=== PATIENT | female | born 1940 | race Two or more races ===

== ENCOUNTER 2018-11-26 10:55 | Inpatient (IN) | payer MEDICAID ==
[~2018-11-26] VITALS: Ht 152.4 cm; Wt 50.6 kg
[2018-11-26 11:42] LABS: Basophils # (auto) 0 uL; Eosinophils # (auto) 0 uL; Lymphocytes # (auto) 0.6 uL; Monocytes # (auto) 0.3 uL; White Blood Cell 2.5 10^3/uL (4.4-10.8)
[2018-11-26 11:43] LABS: Basophils % (auto) 0.3 % (0.0-2.0); Hematocrit 23.8 % (36.0-46.0); Hemoglobin 8.3 g/dL (12.2-16.2); Lymphocytes % (auto) 24.7 % (10.0-50.0); Mean Corpuscular Hemoglobin 29.2 pg (28.0-32.0); Mean Corpuscular Hgb Conc. 34.8 g/dL (32.0-36.0); Mean Corpuscular Volume 83.9 fL (80.0-100.0); Monocytes % (auto) 12.2 % (0.0-12.0); Neutrophils # (auto) 1.6 uL; Neutrophils % (auto) 62.8 % (37.0-80.0); Nucleated Red Blood Cells % 0.1 %; Platelet Count (auto) 195 10^3/uL (140-450); Red Blood Cells 2.84 10^6/uL (4.0-5.20); Red Cell Distribution Width 14.6 % (11.8-14.3)
[2018-11-26 11:59] LABS: Potassium 4.3 mmol/L (3.5-5.1)
[2018-11-26 12:11] LABS: Bilirubin, Total 0.3 mg/dL (0.2-1.0); Magnesium 1.3 mg/dL (1.6-2.6); Total Protein 6.7 g/dL (6.4-8.2)
[2018-11-26] MEDS ORDERED: DOCUSATE SOD 100 MG CAP PO PRN (13:30)
[2018-11-26] MEDS ORDERED: MORPHINE SULF INJ 2 MG/ML SYRINGE 1ML IV PRN ×2 (13:30)
[2018-11-26] MEDS ORDERED: ACETAMINOPHEN 500 MG TAB PO PRN (13:30)
[2018-11-26] MEDS ORDERED: HYDROcodone-ACET 5/325MG TAB PO PRN (13:30)
[2018-11-26] MEDS ORDERED: ONDANSETRON HCL 4 MG/2 ML VIAL IV PRN (13:30)
[2018-11-26] MEDS ORDERED: SODIUM CHLORIDE 0.9% 500 ML IV ONE (13:30)
[2018-11-26] MEDS ORDERED: NITROGLYCERIN 0.4 MG SL TAB SL PRN (13:30)
[2018-11-26] MEDS ORDERED: DEXTROSE (50%) 50ML SYRG IV PRN (13:45)
[2018-11-26] MEDS ORDERED: LACTULOSE 20Gm/30ML SOLN PO ONE (14:15)
[2018-11-26] MEDS: MAGNESIUM SULFATE 1GM/100ML 100 ML IV SCH ×2 (15:04→17:53)
[2018-11-26 15:44] LABS: BUN/Creatinine Ratio 28.8; Calcium 7.2 mg/dL (8.5-10.1); Potassium 4.2 mmol/L (3.5-5.1)
[2018-11-26 16:00] VITALS: BP 133/57
--- NOTE | 2018-11-26 16:00 | NUR ---
Admit to TEE ANICETOTRISTAN admitted to TEE via gurney on monitor car operator. Patient transferred to bed, connected to unit monitoring, and weighed by bedscale. Patient oriented to ROMERO MIMS RN primary RN, patient only speak Salvadorean, called her family for information
--- NOTE | 2018-11-26 16:31 | NUR ---
Called Naeem (son in law), , made aware that patient was transferred to TEE room 265.
[2018-11-26 16:35] LABS: % Iron Saturation 7.3 % (15-50)
[2018-11-26 16:38] LABS: Urine Bacteria NONE SEEN /hpf (None Seen); Urine Blood TRACE /uL (Negative); Urine Specific Gravity 1.006 (1.001-1.035); Urine WBC <1 /hpf (0 - 5)
[2018-11-26 16:39] LABS: Sodium Urine 79 mmol/L (40-220)
[2018-11-26 16:47] LABS: Creatinine, Urine 7 mg/dL (30.0-125.0)
--- NOTE | 2018-11-26 17:18 | NUR ---
Families at the bedside, daughter and her son in law, provided patient's information at this time. Malay communication broad provided. Her son in law helping with explanations.
--- NOTE | 2018-11-26 17:24 | NUR ---
Families at the bedside, helping with translation. Patient oriented to ROMERO MIMS RN primary RN, unit, room, bed, and unit policies regarding patient care and visiting hours. All questions and concerns addressed, patient verbalized understanding. Patient and her families made aware that will taking pictures on her skin, they agreed. Call light within reach, patient made aware how to use the call light. Assessment done, her families stated that patient fell on the floor on her knees on last Saturday. Multiple scabs on both knees. No complaining of pain or chest pain noted. Room air O2 saturation 98%, HR 95 with SR, BP 115/51 mmHg, will continue to monitor and care. Patient and her families made aware about the plan of care, will waiting for Nephrology come in for further treatment and care plan, they agreed with the plan.
[2018-11-26 17:30] VITALS: BP 133/57
[2018-11-26] MEDS: ACCU-CHEK COMFORT CURVE STRIP VI SCH ×2 (17:53→23:09)
[2018-11-26] MEDS: InsuLIN REG 1unit/0.01ml Soln (100units/ml) SC SCH ×2 (18:24→22:00)
--- NOTE | 2018-11-26 18:24 | NUR ---
Dr. Infante at the bedside, her families at the bedside for giving patient information, plan of care discussed with patient, received new orders, patient and her families made aware.
[2018-11-26] MEDS ORDERED: ALOG1TAB2 PO (18:44)
[2018-11-26] MEDS ORDERED: ASPI-404 PO (18:44)
[2018-11-26] MEDS ORDERED: SPIR100T4 PO (18:44)
[2018-11-26] MEDS ORDERED: FURO20TA3 PO (18:44)
[2018-11-26] MEDS ORDERED: [UNRECOGNIZED DRUG - CODE] PO (18:44)
[2018-11-26] MEDS ORDERED: AZIL40TA2 PO (18:44)
[2018-11-26] MEDS ORDERED: LEVO88TA4 PO (18:44)
[2018-11-26] MEDS ORDERED: METF-370 PO (18:44)
[2018-11-26] MEDS ORDERED: BENZ0.5T14 PO (18:44)
[2018-11-26] MEDS ORDERED: PRA25T GT (18:44)
[2018-11-26] MEDS: SODIUM CHLORIDE 0.9% 1,000 ML IV SCH (18:50)
--- NOTE | 2018-11-26 19:45 | NUR ---
Opening Shift Note Assumed care of patient, awake and alert, asked to go to the restroom for BM. Bed black provided, Pt turned by self on the bed well. Pt speaks Ukrainian only, Ukrainian speaking staff helping with translation. Pt's eyesight is not well, Pt unable to see the communication board provided. Breathing on RA, even and nonlabored, No S/S of distress/SOB or pain. 18G IV at left AC infusing NS at 100ml/hr, CDI site. Curiel's catheter hung to gravity with clear yellowish urine. Instructed on POC and to call for assist PRN, will continue to monitor for changes Q1hr and PRN.
[2018-11-26 19:59] LABS: Albumin 2.1 g/dL (3.4-5.0); BUN/Creatinine Ratio 23.5; Calcium 7.4 mg/dL (8.5-10.1); Potassium 3.9 mmol/L (3.5-5.1)
[2018-11-26 20:00] VITALS: BP 119/54
[2018-11-26 20:02] LABS: Bilirubin, Total 0.3 mg/dL (0.2-1.0); Total Protein 6.9 g/dL (6.4-8.2)
--- NOTE | 2018-11-26 20:05 | NUR ---
Elimination Pt passed a large amount of yellowish/ brown soft stool. Perirectal and perineum care done. Z-guard applied. Pt tolerated and turned on the bed by self well. Re-positioned for comfort. After re-position done, Pt asked to use a bed black again for BM. Bed black provided. Continue care.
--- NOTE | 2018-11-26 22:05 | NUR ---
Condition update/ pain/ Muscle twitching Pt resting well on bed. V/S and condition stable, c/o pain at both upper thighs, will administer pain medicine as order. Noted right shoulder twitching, right arm tremors, Pt stated that she has this before, unable to controlled, will endorsed to day shift. Continue care.
[2018-11-26 23:45] VITALS: BP 137/62
[2018-11-27] VITALS (31 sets, daily range): BP systolic 67–144; BP diastolic 31–61
--- NOTE | 2018-11-27 00:20 | NUR ---
Hypotension BP 70-80's / 30's after multiple measurements, RR 12/min, breathing even and nonlabored, lungs clear, awake and alert. BLE negative swollen. Last medication taken at bedtime was [place] 5/325 po. NS 100ml//hr for 500ml as MD order finished. Paged Hospitalist for low BP and management. Addendum: 11/27/18 at 0355 by Cmailla Palumbo RN 0115am Ari ROMO called back, Pt's condition notified. Ari ROMO ordered to give 5% Albumin 250ml IV once. Continue to monitor.
[2018-11-27] MEDS ORDERED: ALBUMIN 5% 250 ML IV ONE ×2 (01:20→02:00)
--- NOTE | 2018-11-27 03:30 | NUR ---
Condition update Pt sleeping well, condition stable. EKG showed SR, POX on RA breathing 95%. BP responded to fluid given. BP increased, see v/s sheet for details. Continue care.
[2018-11-27] MEDS: SODIUM CHLORIDE 0.9% 1,000 ML IV SCH ×3 (04:15→16:00)
--- NOTE | 2018-11-27 05:00 | NUR ---
Patient bathe/linen change Patient given partial bath with basin and water and no rinse spray. Skin integrity assessed for any changes, no new changes. Linens changed. Patient repositioned for comfort.
[2018-11-27 06:10] LABS: Basophils # (auto) 0 uL; Basophils % (auto) 0.2 % (0.0-2.0); Eosinophils # (auto) 0 uL; Hematocrit 24.7 % (36.0-46.0); Hemoglobin 8.5 g/dL (12.2-16.2); Lymphocytes # (auto) 1.2 uL; Lymphocytes % (auto) 22.4 % (10.0-50.0); Mean Corpuscular Hemoglobin 29.1 pg (28.0-32.0); Mean Corpuscular Hgb Conc. 34.6 g/dL (32.0-36.0); Mean Corpuscular Volume 84.1 fL (80.0-100.0); Monocytes # (auto) 0.4 uL; Monocytes % (auto) 7.6 % (0.0-12.0); Neutrophils # (auto) 3.6 uL; Neutrophils % (auto) 69.8 % (37.0-80.0); Nucleated Red Blood Cells % 0.1 %; Platelet Count (auto) 177 10^3/uL (140-450); Red Blood Cells 2.93 10^6/uL (4.0-5.20); Red Cell Distribution Width 14.4 % (11.8-14.3); White Blood Cell 5.2 10^3/uL (4.4-10.8)
[2018-11-27 06:42] LABS: Albumin 2.3 g/dL (3.4-5.0); Calcium 7.2 mg/dL (8.5-10.1); Potassium 3.9 mmol/L (3.5-5.1)
[2018-11-27 06:44] LABS: BUN/Creatinine Ratio 23.9
[2018-11-27 06:46] LABS: Bilirubin, Total 0.3 mg/dL (0.2-1.0); Total Protein 6.5 g/dL (6.4-8.2)
[2018-11-27] MEDS ORDERED: LEVOTHYROXINE SODIUM 88 MCG TAB PO SCH (07:00)
[2018-11-27] MEDS: InsuLIN REG 1unit/0.01ml Soln (100units/ml) SC SCH ×4 (07:00→22:00)
[2018-11-27] MEDS: ACCU-CHEK COMFORT CURVE STRIP VI SCH ×4 (07:01→22:16)
--- NOTE | 2018-11-27 07:30 | NUR ---
RECEIVED PATIENT SITTING UP IN THE BED, A/O TIMES 3 DANISH SPEAKING AND RESISTANCE WELDING MACHINE OPERATOR TRANSLATED FOR THE PATIENT, O2 BY DARIUS Reina TO GRAVITY, NS INFUSING INTO THE LAC 18G AT 10ML/HR TKO, NO COMPLAINTS OF PAIN OR SOB PAIN HAS A TREMOR TO THE RT ARM
--- NOTE | 2018-11-27 08:30 | NUR ---
SITTING UP IN THE BED BEING FEED HER BREAKFAST
--- NOTE | 2018-11-27 09:30 | NUR ---
FAMILY IN TO SEE THE PATIENT
--- NOTE | 2018-11-27 09:45 | NUR ---
DR WAYNE INTO SEE THE PATIENT AND SPOKE TO THE FAMILY
[2018-11-27] MEDS: FAMOTIDINE 20 MG TAB PO SCH (10:34)
[2018-11-27] MEDS: ASPirin-EC 81 mg tab PO SCH (10:34)
[2018-11-27] MEDS: LACTULOSE 20Gm/30ML SOLN PO SCH (10:35)
--- NOTE | 2018-11-27 10:35 | NUR ---
EXPLAIN MEDICATIONS TO THE PATIENT AND THE DAUGHTER AND FRIEND REGARDING THE DOSAGE, USAGE AND SIDE EFFECTS, STATED THEY UNDERSTOOD AND MEDS GIVEN ORDERED
--- NOTE | 2018-11-27 11:30 | NUR ---
SITTING UP IN BED, FAMILY AT THE BEDSIDE, NO COMPLAINTS OF PAIN
[2018-11-27] MEDS ORDERED: SODIUM FERR GLUC 62.5MG/5ML 125 MG in SODIUM CHL 0.9% 100 ML IV SCH (12:00)
[2018-11-27] MEDS: IRON SUCROSE COMPLEX 200 MG in SODIUM CHL 0.9% 100 ML IV SCH (12:06)
--- NOTE | 2018-11-27 12:34 | NUR ---
PATIENT BEING FEED HER LUNCH BY THE FAMILY
--- NOTE | 2018-11-27 13:30 | NUR ---
PATIENT TOLERATED, FEEDING AND FAMILY LEFT AND WENT TO EAT LUNCH
--- NOTE | 2018-11-27 14:13 | NUR ---
SITTING UP IN THE BED WITH EYES CLOSED
[2018-11-27 15:26] LABS: BUN/Creatinine Ratio 22.4; Calcium 7.1 mg/dL (8.5-10.1); Magnesium 1.9 mg/dL (1.6-2.6); Phosphorus 2.8 mg/dL (2.5-4.90); Potassium 3.7 mmol/L (3.5-5.1)
--- NOTE | 2018-11-27 15:30 | NUR ---
SITTING UP IN BED WATCHNG TV
--- NOTE | 2018-11-27 16:50 | NUR ---
FAMILY IN TO SEE THE PATIENT
[2018-11-27 16:59] LABS: Urine Bacteria FEW /hpf (None Seen); Urine Blood 1+ /uL (Negative); Urine Specific Gravity 1.013 (1.001-1.035); Urine WBC 28 /hpf (0 - 5)
[2018-11-27 17:06] LABS: Protein, Urine 205.5 mg/dL (0.0-11.9)
--- NOTE | 2018-11-27 17:28 | NUR ---
DR FARAH IN TO SEE THE PATIENT, AND TALK TO THE FAMILY REGARDING THE POC
[2018-11-27] MEDS: SODIUM BICARBONATE 650 MG TAB PO SCH ×2 (17:44→21:57)
--- NOTE | 2018-11-27 17:58 | NUR ---
SITTING UP IN BED, FAMILY AT THE BEDSIDE, [place] SPEAKING, BUT PER FAMILY IS A/O, O2 BY R/A, MCCOY TO GRAVITY, NS AT 60ML/HR INFUSING INTO THE LAC BY THE IV PUMP, WAITING TO EAT DINNER, 02 BY R/A
--- NOTE | 2018-11-27 18:19 | NUR ---
PATIENT BEING FEED HER DINNER BY THE FAMILY WILL CONTINUE TO MONITOR AND GIVE REPORT TO THE NEXT SHIFT
--- NOTE | 2018-11-27 19:41 | NUR ---
PATIENT GOING TO ROOM 234 NURSE RN REPORT GIVEN
--- NOTE | 2018-11-27 20:05 | NUR ---
Received patient from TEE via bed/ gurney in stable condition. Patient alert and oriented x 4, verbally coherent, however, understands Belarusian only. Patient's respiration even and unlabored, denies pain and discomfort at this time. Plan of care discussed, patient verbalized understanding. Will continue to monitor.
--- NOTE | 2018-11-27 20:10 | NUR ---
PATIENT TRANSFERRED PER BED TO ROOM 234 . PATIENT PLACED ON A TELEMETRY BOX.
[2018-11-28] MEDS: SODIUM CHLORIDE 0.9% 1,000 ML IV SCH ×2 (00:25→17:58)
[2018-11-28 05:00] VITALS: BP 140/66
[2018-11-28 05:53] LABS: BUN/Creatinine Ratio 21.8; Calcium 7.1 mg/dL (8.5-10.1); Potassium 4.1 mmol/L (3.5-5.1)
[2018-11-28] MEDS: SODIUM BICARBONATE 650 MG TAB PO SCH ×3 (06:25→22:55)
[2018-11-28] MEDS: LEVOTHYROXINE SODIUM 100 MCG TAB PO SCH (06:25)
[2018-11-28] MEDS: InsuLIN REG 1unit/0.01ml Soln (100units/ml) SC SCH ×4 (06:25→22:57)
[2018-11-28] MEDS: ACCU-CHEK COMFORT CURVE STRIP VI SCH ×4 (06:26→22:52)
[2018-11-28 09:00] VITALS: BP 107/49
[2018-11-28] MEDS: FAMOTIDINE 20 MG TAB PO SCH (10:49)
[2018-11-28] MEDS: LACTULOSE 20Gm/30ML SOLN PO SCH (10:49)
--- NOTE | 2018-11-28 10:50 | NUR ---
PASSED MORNING MEDICATIONS, PT TOLERATED WELL. PT ORIENTED TO SELF, . DAUGHTERS AT BEDSIDE. BED LOCKED AND IN LOWEST POSITION, BED ALARM ON. CALL LIGHT WITHIN REACH. WILL CONTINUE TO MONITOR.
[2018-11-28] MEDS: ASPirin-EC 81 mg tab PO SCH (10:54)
--- NOTE | 2018-11-28 11:00 | NUR ---
24 HOUR URINE SPECIMEN COLLECTION INITIATED PER ORDER. PT, FAMILY AND DR. FARAH AWARE OF PLAN.
[2018-11-28 13:00] VITALS: BP 116/51
[2018-11-28] MEDS: IRON SUCROSE COMPLEX 200 MG in SODIUM CHL 0.9% 100 ML IV SCH (13:16)
--- NOTE | 2018-11-28 13:17 | NUR ---
ANALISA RECEIVED FROM PHARMACY; ADMINISTERED NOW.
[2018-11-28 17:00] VITALS: BP 120/65
--- NOTE | 2018-11-28 18:43 | NUR ---
PT AWAKE, ALERT, ORIENTED TO PERSON, . ABLE TO HOLD CONVERSATION WITH DAUGHTERS AT BEDSIDE. PT FOLLOWS COMMANDS, DENIES ANY PAIN AT MOMENT. EFFORTLESS BREATHING ON ROOM AIR. 24HOUR URINE COLLECTION IN PROGRESS, TO END AND SEND SPECIMEN TOTAL TO LAB TOMORROW 11/29/18 AT 1100. BED LOCKED AND IN LOWEST POSITION, CALL LIGHT WITHIN REACH.
--- NOTE | 2018-11-28 20:09 | NUR ---
Opening Shift Note Assumed care of patient, awake and alert. No S/S of distress/SOB or pain. Instructed on POC and to call for assist PRN. Family at bedside, will continue to monitor for changes Q1hr and PRN.
[2018-11-28 22:00] VITALS: BP 112/55
[2018-11-29 05:00] VITALS: BP 130/65
[2018-11-29 05:46] LABS: Basophils # (auto) 0 uL; Basophils % (auto) 0.4 % (0.0-2.0); Eosinophils # (auto) 0 uL; Lymphocytes # (auto) 1.2 uL; Lymphocytes % (auto) 20.1 % (10.0-50.0); Mean Corpuscular Hemoglobin 29.2 pg (28.0-32.0); Mean Corpuscular Hgb Conc. 34.7 g/dL (32.0-36.0); Mean Corpuscular Volume 84.2 fL (80.0-100.0); Monocytes # (auto) 0.5 uL; Neutrophils # (auto) 4.2 uL; Neutrophils % (auto) 71.5 % (37.0-80.0); Nucleated Red Blood Cells % 0.1 %; Platelet Count (auto) 164 10^3/uL (140-450); Red Blood Cells 3.08 10^6/uL (4.0-5.20); White Blood Cell 5.8 10^3/uL (4.4-10.8)
[2018-11-29 05:52] LABS: BUN/Creatinine Ratio 20.7; Calcium 6.7 mg/dL (8.5-10.1); Potassium 4.5 mmol/L (3.5-5.1)
[2018-11-29] MEDS: SODIUM BICARBONATE 650 MG TAB PO SCH ×3 (06:17→21:49)
[2018-11-29] MEDS: ACCU-CHEK COMFORT CURVE STRIP VI SCH ×4 (06:18→21:50)
[2018-11-29] MEDS: InsuLIN REG 1unit/0.01ml Soln (100units/ml) SC SCH ×4 (06:18→21:50)
[2018-11-29] MEDS: LEVOTHYROXINE SODIUM 100 MCG TAB PO SCH (06:35)
--- NOTE | 2018-11-29 07:30 | NUR ---
Opening Shift Note Assumed care of patient, awake and alert. No S/S of distress/SOB. Pt denies having any pain at this time. Bed in lowest and locked position with side rails up x2 and call light in reach. Instructed on POC and to call for assist PRN, will continue to monitor for changes Q1hr and PRN.
[2018-11-29 08:11] LABS: Immunoglobulin G, Serum 1720 mg/dL (700-1600)
[2018-11-29 09:00] VITALS: BP 116/49
[2018-11-29] MEDS: ASPirin-EC 81 mg tab PO SCH (10:33)
[2018-11-29] MEDS: FAMOTIDINE 20 MG TAB PO SCH (10:33)
[2018-11-29] MEDS: LACTULOSE 20Gm/30ML SOLN PO SCH (10:33)
[2018-11-29] MEDS: SODIUM CHLORIDE 0.9% 1,000 ML IV SCH ×2 (11:00→20:28)
--- NOTE | 2018-11-29 11:00 | NUR ---
24HR URINE SPECIMEN COMPLETED AND SENT TO LAB.
[2018-11-29] MEDS: IRON SUCROSE COMPLEX 200 MG in SODIUM CHL 0.9% 100 ML IV SCH (12:15)
--- NOTE | 2018-11-29 12:31 | NUR ---
Nutrition Assessment Notes please see attached link for complete assessment Est. Needs BW 45 [id number] kcal (25-30 kcal/kgBW), 27-36 gms pro (0.6-0.8 gms/kgBW r/t elev ammonia). Will continue to monitor pertinent labs and reassess nutrient need prn Addendum: 11/29/18 at [address] Amended: Links added.
[2018-11-29 13:00] VITALS: BP 145/61
[2018-11-29 13:52] LABS: Protein, Urine 238.7 mg/dL (0.0-11.9)
[2018-11-29 14:20] LABS: 24 Hr. Total Protein, Urine 954.8 mg/24 Hr (<149.1)
[2018-11-29 17:00] VITALS: BP 123/54
--- NOTE | 2018-11-29 19:30 | NUR ---
CARE ENDORSED TO CORA RNEVELIO.
--- NOTE | 2018-11-29 19:54 | NUR ---
Opening shift note Patient in bed alert and oriented x 4, pt complained of shortness of breath. Lung sounds CTA. O2 saturation at 97% on room air. Head of bed elevated. Supplemental O2 at 1lpm, patient stated "feeling a lot better" Plan of care discussed, patient verbalized understanding. Family at bedside. Will continue to monitor.
[2018-11-29 21:00] VITALS: BP 130/71
[2018-11-30 05:00] VITALS: BP 131/61
[2018-11-30 05:22] LABS: Basophils # (auto) 0 uL; Basophils % (auto) 0.4 % (0.0-2.0); Eosinophils # (auto) 0 uL; Eosinophils % (auto) 0.1 % (0.0-7.0); Hematocrit 27.1 % (36.0-46.0); Hemoglobin 9.3 g/dL (12.2-16.2); Lymphocytes # (auto) 1.1 uL; Lymphocytes % (auto) 19.2 % (10.0-50.0); Mean Corpuscular Hgb Conc. 34.3 g/dL (32.0-36.0); Mean Corpuscular Volume 84.6 fL (80.0-100.0); Monocytes # (auto) 0.5 uL; Monocytes % (auto) 9.4 % (0.0-12.0); Neutrophils # (auto) 4.1 uL; Neutrophils % (auto) 70.9 % (37.0-80.0); Platelet Count (auto) 187 10^3/uL (140-450); Red Blood Cells 3.21 10^6/uL (4.0-5.20); Red Cell Distribution Width 15.1 % (11.8-14.3); White Blood Cell 5.8 10^3/uL (4.4-10.8)
[2018-11-30 05:43] LABS: Potassium 4.9 mmol/L (3.5-5.1)
[2018-11-30 05:53] LABS: Calcium 7.7 mg/dL (8.5-10.1)
[2018-11-30] MEDS: InsuLIN REG 1unit/0.01ml Soln (100units/ml) SC SCH ×4 (06:30→21:56)
[2018-11-30] MEDS: LEVOTHYROXINE SODIUM 100 MCG TAB PO SCH (06:30)
[2018-11-30] MEDS: SODIUM BICARBONATE 650 MG TAB PO SCH ×3 (06:30→21:56)
[2018-11-30] MEDS: ACCU-CHEK COMFORT CURVE STRIP VI SCH ×4 (06:31→21:57)
[2018-11-30] MEDS: SODIUM CHLORIDE 0.9% 1,000 ML IV SCH ×2 (06:31→17:00)
[2018-11-30 09:00] VITALS: BP 112/71
[2018-11-30] MEDS: FAMOTIDINE 20 MG TAB PO SCH (09:57)
[2018-11-30] MEDS: LACTULOSE 20Gm/30ML SOLN PO SCH (09:58)
[2018-11-30] MEDS: ASPirin-EC 81 mg tab PO SCH (09:58)
[2018-11-30] MEDS: IRON SUCROSE COMPLEX 200 MG in SODIUM CHL 0.9% 100 ML IV SCH (12:19)
[2018-11-30 12:46] VITALS: BP 130/59
--- NOTE | 2018-11-30 16:29 | NUR ---
PT REPORTS FEELING "AGITATED, AND SHORT OF BREATH" PT O2 SATS 97% ON RA, NO APPARENT DIFFICULTY BREATHING, 1L NC CANNULA APPLIED, PT STATES SHE IS FEELING MUCH BETTER. PT DENIES PAIN OR DISCOMFORT AT THIS TIME, WILL CONTINUE TO MONITOR
[2018-11-30 17:00] VITALS: BP 136/59
--- NOTE | 2018-11-30 19:20 | NUR ---
Opening Shift Note Assumed care of patient, awake and alert. No S/S of distress/SOB or pain. Family is present at bedside. Instructed on POC and to call for assist PRN, will continue to monitor for changes Q1hr and PRN.
[2018-11-30 21:30] VITALS: BP 149/74
[2018-12-01 05:00] VITALS: BP 137/62
[2018-12-01] MEDS: SODIUM CHLORIDE 0.9% 1,000 ML IV SCH ×3 (05:30→20:50)
[2018-12-01 05:37] LABS: Basophils # (auto) 0 uL; Basophils % (auto) 0.5 % (0.0-2.0); Eosinophils # (auto) 0 uL; Eosinophils % (auto) 0.1 % (0.0-7.0); Hematocrit 23.4 % (36.0-46.0); Hemoglobin 8.1 g/dL (12.2-16.2); Lymphocytes # (auto) 1.3 uL; Lymphocytes % (auto) 25.1 % (10.0-50.0); Mean Corpuscular Hemoglobin 29.1 pg (28.0-32.0); Mean Corpuscular Hgb Conc. 34.4 g/dL (32.0-36.0); Mean Corpuscular Volume 84.6 fL (80.0-100.0); Monocytes # (auto) 0.6 uL; Monocytes % (auto) 12.3 % (0.0-12.0); Neutrophils # (auto) 3.2 uL; Nucleated Red Blood Cells % 0.3 %; Platelet Count (auto) 186 10^3/uL (140-450); Red Blood Cells 2.77 10^6/uL (4.0-5.20); Red Cell Distribution Width 15.1 % (11.8-14.3); White Blood Cell 5.2 10^3/uL (4.4-10.8)
[2018-12-01 05:46] LABS: Calcium 7.4 mg/dL (8.5-10.1); Potassium 4.7 mmol/L (3.5-5.1)
[2018-12-01 05:51] LABS: BUN/Creatinine Ratio 22.6
[2018-12-01] MEDS: LEVOTHYROXINE SODIUM 100 MCG TAB PO SCH (06:13)
[2018-12-01] MEDS: InsuLIN REG 1unit/0.01ml Soln (100units/ml) SC SCH ×4 (06:13→22:56)
[2018-12-01] MEDS: SODIUM BICARBONATE 650 MG TAB PO SCH ×3 (06:13→22:45)
[2018-12-01] MEDS: ACCU-CHEK COMFORT CURVE STRIP VI SCH ×4 (06:14→22:55)
[2018-12-01 09:00] VITALS: BP 150/73
[2018-12-01] MEDS: LACTULOSE 20Gm/30ML SOLN PO SCH (11:06)
[2018-12-01] MEDS: FAMOTIDINE 20 MG TAB PO SCH (11:06)
[2018-12-01] MEDS: ASPirin-EC 81 mg tab PO SCH (11:07)
[2018-12-01 13:00] VITALS: BP 131/64
[2018-12-01 13:49] LABS: Hepatitis B Core IgM Negative; Hepatitis B Surface Antigen Negative (Negative)
[2018-12-01] MEDS: IRON SUCROSE COMPLEX 200 MG in SODIUM CHL 0.9% 100 ML IV SCH (14:01)
[2018-12-01 17:00] VITALS: BP 129/67
--- NOTE | 2018-12-01 19:30 | NUR ---
Opening Shift Note Assumed care of patient, awake and alert. No S/S of distress/SOB, and pt denies pain. Instructed on POC and to call for assist PRN. This RN will continue to monitor for changes Q1hr and PRN. Bed low and locked. HOB in semi-Rayo's. Call light placed at pt's L side
[2018-12-01 21:30] VITALS: BP 115/42
[2018-12-02 05:38] VITALS: BP 149/70
[2018-12-02] MEDS: SODIUM BICARBONATE 650 MG TAB PO SCH ×2 (06:23→14:00)
[2018-12-02] MEDS: LEVOTHYROXINE SODIUM 100 MCG TAB PO SCH (06:24)
[2018-12-02] MEDS: ACCU-CHEK COMFORT CURVE STRIP VI SCH ×3 (06:26→17:00)
[2018-12-02] MEDS: InsuLIN REG 1unit/0.01ml Soln (100units/ml) SC SCH ×3 (06:27→17:00)
--- NOTE | 2018-12-02 07:30 | NUR ---
Open Shift Note Received report on patient, awake and sitting up in bed. Patient shows no signs of distress at this time. Discussed POC with patient with use of occupational health and safety officer. Patient verbalized understanding. Bed in lowest locked position, side rails up x2 and call light within reach. Will continue to monitor.
[2018-12-02 09:00] VITALS: BP 119/100
[2018-12-02] MEDS: SODIUM CHLORIDE 0.9% 1,000 ML IV SCH (09:00)
[2018-12-02] MEDS: LACTULOSE 20Gm/30ML SOLN PO SCH (10:00)
[2018-12-02 10:13] LABS: BUN/Creatinine Ratio 24.5; Calcium 7.4 mg/dL (8.5-10.1); Potassium 4.8 mmol/L (3.5-5.1)
[2018-12-02] MEDS: FAMOTIDINE 20 MG TAB PO SCH (10:23)
[2018-12-02] MEDS: ASPirin-EC 81 mg tab PO SCH (10:23)
--- NOTE | 2018-12-02 12:52 | NUR ---
Nutrition Follow-up Notes Wt.: 50.6 kg as of yesterday. Pt's asleep, no immediate family member at bedside during rounds this morning. Pt's no signs of distress noted earlier, currently on Consistent Carb diet with fair PO intake aeb 70% ave. consumed meals (x6) in last 2.5 days. Est. Needs BW 45 [id number] kcal (25-30 kcal/kgBW), 36-45 gms pro (0.8-1.0 gms/kgBW r/t elev ammonia). Will continue to monitor pertinent labs and reassess nutrient need prn Labs: Gluc 224 H, Na 130 L, CO2 19 L, BUN 24 H, Ca 7.4 L; Ammonia 41 H Skin: Ernesto scale 17, mod risk, pt's left right knee scab per mixer wet pour. GI: Pt had 2x BM yesterday per mixer wet pour. PES: Increased nutrient needs r/t current/chronic medical/nutritional status aeb 111% IBW, BMI 21.8 kg/m2, decreased muscle mass, <75% consumed meals. Altered nutrition related lab values r/t current/chronic medical condition aeb elev RFT ammonia, hypocalcemia, mod hypoalb Will continue to monitor PO intake, skin status, pertinent labs and weight trend. F/u in 3 to 5 days. Rec.: 1.) Continue close supervision and feeding assistance prn during meals. 2.) If ammonia level continues trending up, consider Soft Hepatic (50 gms pro, 2 gms Na), Low Fat in addition to current therapeutic diet with Glucerna Shakes 1 carton BID if pt's PO remains inadequate (<75%). 3.) If Albumin continues trending down with improved ammonia level, consider Prostat 1 pkt BID. 4.) Refer pt to CDE/RD for further nutrition education and weight monitoring upon discharge. 5.) Continue current plan of care.
--- NOTE | 2018-12-02 12:59 | NUR ---
Nephro Cleared For Discharge Dr Ingram cleared patient for discharge and stated patient needs to make appointment with nephro outpatient because her insurance will not allow her to be seen at her facility. Verbalized understanding. Paged Dr Hill and made him aware.
[2018-12-02 13:00] VITALS: BP 127/81
--- NOTE | 2018-12-02 13:00 | NUR ---
IV insertion IV access obtained, via clean sterile technique by inserting 22 gauge catheter in the left forearm. IV secured properly. No trauma to site. Patient tolerated well. Old IV access removed using clean sterile technique, catheter intact and dressing applied.
--- NOTE | 2018-12-02 14:55 | NUR ---
assessment No post discharge needs identified. Addendum: 12/03/18 at 1455 by Elisa CHAVIS Amended: Links added.
[2018-12-02] MEDS ORDERED: SODI650T PO (15:08)
[2018-12-02 16:02] VITALS: BP 127/81
--- NOTE | 2018-12-02 17:00 | NUR ---
Discharged Discharge instructions given as ordered. Encourage to follow up with PMD as instructed. Patient to obtain referral for nephrology from PCP. All questions and concerns addressed. Patient verbalized understanding. Medication reconciliation form completed and copy given to patient. Prescription ready for fruit picker machine operator at [facility]. IV removed with catheter intact, pressure dressing applied, nunez catheter removed. Telemetry unit returned to ICU. Patient taken to vehicle via wheelchair with all personal belongings, accompanied by staff and family member. No distress noted at time of departure.
== END 2018-12-02 17:00 | disposition home or self-care (01) | DRG 52 ==
LOC: ER 10:55 → TELE 10:56 → DOU IN ICU 16:00 → TELE-EAST 11-27 20:05
PROVIDERS: ADMIT Nurse Practitioner Acute Care; ATTEND Internal Medicine
DX: G93.41 Metabolic encephalopathy (principal); N17.0 Acute kidney failure with tubular necrosis; E43 Unspecified severe protein-calorie malnutrition; E87.2 Acidosis; E87.8 Other disorders of electrolyte and fluid balance, not elsewhere classified; E11.65 Type 2 diabetes mellitus with hyperglycemia; E11.21 Type 2 diabetes mellitus with diabetic nephropathy; K72.90 Hepatic failure, unspecified without coma; E87.1 Hypo-osmolality and hyponatremia; N18.3 Chronic kidney disease, stage 3 (moderate); E83.42 Hypomagnesemia; D50.9 Iron deficiency anemia, unspecified; R80.9 Proteinuria, unspecified; E03.9 Hypothyroidism, unspecified; I12.9 Hypertensive chronic kidney disease with stage 1 through stage 4 chronic kidney disease, or unspecified chronic kidney disease; Z79.84 Long term (current) use of oral hypoglycemic drugs
CPT/HCPCS: 36415; 70450; 80048; 80053; 80320; 81001; 82043; 82140; 82533; 82570; 82784; 82962; 83036; 83540; 83550; 83605; 83735; 83883; 83930; 83935; 84100; 84155; 84156; 84165; 84166; 84300; 84439; 84443; 84484; 85025; 86334; 86335; 86703; 86705; 86803; 87340; 96361; 96365; 96375; G0378; J1756; J1815; J2405